=== PATIENT | male | born 1970 | race Caucasian/White ===

== ENCOUNTER 2016-12-30 10:28 | Day surgery (SDC) | payer OTHER ==
[~2016-12-30] VITALS: Ht 167.6 cm; Wt 65.1 kg
[2016-12-30] VITALS (16 sets, daily range): BP systolic 105–125; BP diastolic 64–80; PULSE 56–78; RESP 6–25; Ht 167.6 cm; Wt 65.1 kg
[~2016-12-30 10:28] MED LIST: CEFAZOLIN 1 GM INJ ONE
[2016-12-30] MEDS ORDERED: MTF1000T PO (11:59)
[2016-12-30] MEDS ORDERED: SITA100T8 PO (12:01)
[2016-12-30] MEDS ORDERED: LIDOCAINE 2% 20 ML UROJET SYRINGE ONE (12:15)
[2016-12-30] MEDS ORDERED: IOHEXOL 300MG/ML 30 ML BTL ONE (12:26)
--- NOTE | 2016-12-30 12:26 | HPN ---
Date/Time of Note Date/Time of Note DATE: 12/30/16 TIME: 12:26 Interval H&P Admission Note Pt. seen H&P reviewed: No system changes KEENAN DURÁN MD Dec 30, 2016 12:26
[2016-12-30] MEDS ORDERED: PROPOFOL 20 ML ONE (12:29)
[2016-12-30] MEDS ORDERED: ROCURONIUM 50 MG INJ ONE (12:29)
[2016-12-30] MEDS ORDERED: LIDOCAINE 2% (SDV) 5 ML INJ ONE (12:30)
[2016-12-30] MEDS ORDERED: FENTAnyl 50 MCG/ML VIAL ONE (12:30)
[2016-12-30] MEDS ORDERED: ONDANSETRON 4 MG INJ IV PRN (13:00)
[2016-12-30] MEDS ORDERED: OXYCODONE/ACETAMINOPHEN (5/325) TAB PO PRN ×2 (13:00)
[2016-12-30] MEDS ORDERED: HYDROmorphONE (0.2 MG/ML) 10ML SYG IV PRN ×3 (13:00)
[2016-12-30] MEDS ORDERED: FENTAnyl 50 MCG/ML VIAL IV PRN ×3 (13:00)
[2016-12-30] MEDS ORDERED: LABETALOL HCL 20MG INJ IV PRN (13:00)
[2016-12-30] MEDS ORDERED: MEPERIDINE 25 MG INJ IV PRN (13:00)
[2016-12-30] MEDS ORDERED: EPHEDrine SULFATE 50 MG/5 ML SYG IV PRN (13:00)
[2016-12-30] MEDS ORDERED: HYDROCODONE/APAP (5/325) TAB PO PRN (14:00)
--- NOTE | 2016-12-30 14:16 | OPR ---
DATE OF OPERATION: 12/30/2016 PREOPERATIVE DIAGNOSIS: History of testicular cancer with retroperitoneal adenopathy, status post c hemotherapy and retroperitoneal lymph node dissection. The patient does have bilateral JJ stents wh ich needs to be removed, and if needed, replaced. POSTOPERATIVE DIAGNOSIS: History of testicular cancer with retroperitoneal adenopathy, status post chemotherapy and retroperitoneal lymph node dissection. The patient does have bilateral JJ stents w hich needs to be removed, and if needed, replaced. The patient does have more hydronephrosis on the right side. The right ureter is still dilated and there is a little constriction at the right sacr oiliac joint area, and the kidney, right side, does not drain well, and the left ureter is normal, b ut the left kidney, also does not drain good either. Therefore, I did remove the old stents, did th e retrograde pyelogram, and inserted new JJ stents, 6 x 26 on the right side and 6 x 24 on the left side. TECHNIQUE: The patient was brought to the operating room. General anesthesia was induced. The pat ient was positioned in the lithotomy position. He received 2 g of Ancef IV at the start of the proc edure. Time out was done. The patient was identified by his name, date, and the procedure. The genital area was then prepped and draped in the usual sterile manner. I did take pictures, did fluoroscopy first, and the stents were hardly visible on the fluoroscopy. They seemed like they may be radiolucent, but as I did the cystoscopy, one could see them curling into the bladder and coming down in each ureter. Therefore, I did first grasp the right ureteral stent and pulled it out. The n I did repeat the same on the left side and removed the left ureteral stent. Then I used a 10-Fren ch cone tip ureteral catheter, did retrograde on the right side, and also retrograde on the right si de, and the findings are as dictated above, I did wait with the hope that the right kidney will drai n. It would not drain. The ureter did drain except the area above the sacroiliac joint at the leve l of the iliac vessel crossing, and on the left side the ureter drained all the way up to the UPJ, b ut the renal pelvis and the collecting system on the left side did not drain completely. Therefore, I decided to put stents back in, so I did put a 6 x 26 JJ stent on the right side and 6 x 24 on the left side. The stents curl well in the kidney and went into the bladder. The bladder was emptied, and the patient was transferred to recovery room in stable and satisfactory condition. Dictated By: KEENAN SUAREZ/JUANA Conf#: [id number] DID#: [id number]
--- NOTE | 2016-12-30 16:06 | RADRPT ---
PROCEDURE: Intraoperative imaging of the abdomen and pelvis with fluoroscopy. CLINICAL INDICATION: Abdomen pain. Intraoperative. TECHNIQUE: 36 images of the abdomen and pelvis were obtained in the operating room with an image i ntensifier. No radiologist was in attendance. 119.2 seconds of fluoroscopy time was used. COMPARISON: No prior study is available for comparison. FINDINGS: Images demonstrate bilateral retrograde pyelogram with contrast injected into both ureters. On the right side, there is severe hydronephrosis and a stricture of the mid right ureter at the mid L5 level. No filling defect is visualized. On the left side, there is moderate hydronephrosis and no obstructing lesion visualized. Final images demonstrate satisfactory position of bilateral ureteral double pigtail stent is. IMPRESSION: 1. Severe right hydronephrosis with a stricture in the mid right ureter and L5 level. 2. Moderate left hydronephrosis with no obstructing lesion visualized. 3. Satisfactory position of bilateral double pigtail ureteral stents. RPTAT: QQ .Phillip Granados MD, MD Date Time Electronically viewed and signed by .Phillip Granados MD, on 12/30/2016 16:05 .R/
[2016-12-31] MEDS ORDERED: INFLUENZA VIRUS VACCINE 0.5 ML (DISPENSING) IM* ONE (09:00)
== END 2016-12-30 16:05 | disposition home or self-care (01) ==
LOC: SDS 10:28
PROVIDERS: ATTEND Urology
DX: N13.30 Unspecified hydronephrosis (principal); E11.9 Type 2 diabetes mellitus without complications; Z85.47 Personal history of malignant neoplasm of testis
CPT/HCPCS: 52310; 74420; 82962; C2617; J3010; Q9967; Z7512; Z7610; 88300; J0690

== ENCOUNTER 2017-04-28 10:37 | Day surgery (SDC) | payer OTHER ==
[2017-04-27 12:56] VITALS: BMI 23.1
[2017-04-28] VITALS (8 sets, daily range): BP systolic 106–122; BP diastolic 69–74; PULSE 68–82; RESP 14–28; Ht 167.6 cm; Wt 64.9 kg
[~2017-04-28] VITALS: Ht 167.6 cm; Wt 64.9 kg
[~2017-04-28 10:37] MED LIST changes: +ATROPINE 1 MG/10 ML SYRINGE IV PRN; +DIPHENHYDRAMINE 50 MG INJ IV PRN; +EPHEDrine SULFATE 50 MG/5 ML SYG IV PRN; +FENTAnyl 50 MCG/ML VIAL IV PRN; +HYDROmorphONE (0.2 MG/ML) 10ML SYG IV PRN; +LABETALOL HCL 20MG INJ IV PRN; +MEPERIDINE 25 MG INJ IV PRN; +MIDAZOLAM 1 MG/ML 2 ML INJ IV PRN; +MTF1000T PO; +ONDANSETRON 4 MG INJ IV PRN; +OXYCODONE/ACETAMINOPHEN (5/325) TAB PO PRN; +SITA100T8 PO; +hydrALAzine 20 MG INJ IV PRN; +morphine (1 MG/ML) 10ML SYRINGE IV PRN
[2017-04-28] MEDS ORDERED: CEFTRIAXONE 1 GM/NS 50 ML IVPB SCH (11:00)
[2017-04-28] MEDS ORDERED: FENTAnyl 50 MCG/ML VIAL ONE (11:04)
[2017-04-28] MEDS ORDERED: LIDOCAINE 2% (SDV) 5 ML INJ ONE (11:04)
[2017-04-28] MEDS ORDERED: DEXAMETHASONE 4 MG/ML 1 ML INJ ONE (11:04)
[2017-04-28] MEDS ORDERED: PROPOFOL 20 ML ONE (11:04)
[2017-04-28] MEDS ORDERED: NEOSTIGMINE 3 MG/3 ML SYRINGE ONE (11:04)
[2017-04-28] MEDS ORDERED: ROCURONIUM 50 MG INJ ONE (11:04)
[2017-04-28] MEDS ORDERED: GLYCOPYRROLATE 0.4 MG INJ ONE (11:04)
[2017-04-28] MEDS ORDERED: MIDAZOLAM 1 MG/ML 2 ML INJ ONE (11:04)
[2017-04-28] MEDS ORDERED: ONDANSETRON 4 MG INJ ONE (11:05)
[2017-04-28] MEDS ORDERED: IOHEXOL 300MG/ML 30 ML BTL ONE (12:24)
--- NOTE | 2017-04-28 12:27 | HPN ---
Date/Time of Note Date/Time of Note DATE: 04/28/17 TIME: 12:26 Interval H&P Admission Note Pt. seen H&P reviewed: No system changes KEENAN DURÁN MD Apr 28, 2017 12:26
[2017-04-28] MEDS ORDERED: LACTATED RINGER'S 1,000 ML IV SCH (12:30)
[2017-04-28] MEDS ORDERED: IOHEXOL 300MG/ML 30 ML BTL INJ ONE (13:11)
--- NOTE | 2017-04-28 14:10 | OPR ---
Date/Time of Note Date/Time of Note DATE: 04/28/17 TIME: 13:54 Operative Report Procedure Date: Apr 28, 2017 Preoperative Diagnosis Bilateral hydronephrosis, history of testicular cancer and retroperitoneal lymph node dissection, patient status post bilateral JJ stent insertion Postoperative Diagnosis Bilateral hydronephrosis, history of testicular cancer and retroperitoneal lymph node dissection, patient status post bilateral JJ stent insertion. Operation Performed Cystoscopy and removal of right ureteral JJ stent, right retrograde pyelogram and insertion of a new right ureteral JJ stent, size 6 [place] by 24 cm long Removal of left ureteral JJ stent, left retrograde pyelogram Surgeon: KEENAN DURÁN MD Anesthesia: general Anesthesiologist: ARLEN EUBANKS MD Estimated Blood Loss: none Specimens No specimen, the 2 JJ stents, that were removed, were discarded Complications: None Pt Condition Post Procedure: stable Indications Bilateral hydronephrosis status post retroperitoneal lymph node dissection from testicular cancer, the left side appears better than it was before and it drains reasonably well, so I decided not to insert a new JJ stent on the left side. On the right side however the kidney remained full of contrast and was not draining well in the area lateral to the L5 and over the sacroiliac joint area. So on the right side I reinserted a new JJ stent 6 [place] by 24 cm long Operative\Procedure Findings Bilateral hydronephrosis status post retroperitoneal lymph node dissection from testicular cancer, the left side appears better than it was before and it drains reasonably well, so I decided not to insert a new JJ stent on the left side. On the right side however the kidney remained full of contrast and was not draining well in the area lateral to the L5 and over the sacroiliac joint area. So on the right side I reinserted a new JJ stent 6 [place] by 24 cm long Procedure Description Patient was brought to the operating room general endotracheal anesthesia was induced time out was done , the patient was identified by his name date and the procedure. The patient was positioned in the lithotomy position. The genital area was prepped and draped in the usual sterile manner. #21 [place] cystoscope sheath was then introduced under direct vision through the penile urethra all the way to the bladder. Fluoroscopy was then done , the distal end of the right ureteral JJ stent was grasped with the grasper and pulled out. A 10 [place] cone tipped ureteral catheter was used and a right retrograde pyelogram was done .the contrast material was not going into the ureter at the sacroiliac joint area unless I pushed the tip of the cone tip catheter to that level and then the contrast remained in the renal pelvis and did not seem to be coming down easily or fast . Then I went ahead and removed the left ureteral JJ stent and did a retrograde pyelogram on the left side . There on the left side the kidney appeared to be draining better ,even though there was still some contrast in the kidney but it appears better than it was before, therefore I decided not to put a JJ stent on the left side . As I was done with the left side we looked back at the right side and again the contrast still in the upper ureter and renal pelvis, therefore I decided to insert a new JJ stent on the right side. A 0.35 zip wire was passed under fluoroscopy from the bladder up to the kidney ,then on the zip wire I advanced a 6 [place] by 24 cm long JJ stent and had its proximal end curling into the kidney and the distal end curling into the bladder. the bladder was emptied and the patient was transferred to recovery room in stable and satisfactory condition KEENAN DURÁN MD Apr 28, 2017 14:10
[2017-04-28] MEDS ORDERED: HYDROCODONE/APAP (5/325) TAB PO PRN (14:30)
--- NOTE | 2017-04-28 15:48 | RADRPT ---
PROCEDURE: Intraoperative imaging of the abdomen and pelvis with fluoroscopy. CLINICAL INDICATION: Abdominal pain. Intraoperative. TECHNIQUE: 44 images of the abdomen and pelvis were obtained in the operating room with an image i ntensifier. No radiologist was in attendance. 184.2 seconds of fluoroscopy time was used. COMPARISON: 12/30/2016. FINDINGS: Initial images demonstrate bilateral ureteral stents in satisfactory position. The stents were surjit michael and contrast was injected into the bilateral ureters and multiple digital images were obtained. Following this, new bilateral double pigtail ureteral stents were inserted. IMPRESSION: 1. Satisfactory intraoperative imaging of the abdomen and pelvis. 2. Replacement of bilateral double pigtail ureteral stents. RPTAT: QQ .Phillip Granados MD, MD Date Time Electronically viewed and signed by .Phillip Granados MD, on 04/28/2017 15:47 .R/
== END 2017-04-28 16:08 | disposition home or self-care (01) ==
LOC: SDS 10:37
PROVIDERS: ATTEND Urology
DX: N13.30 Unspecified hydronephrosis (principal); Z85.47 Personal history of malignant neoplasm of testis; E11.9 Type 2 diabetes mellitus without complications
CPT/HCPCS: 52332; 74430; 82962; 87086; C2617; J0690; J1100; J2250; J2405; J2710; J3010; Q9967; Z7512; Z7610

== ENCOUNTER 2017-08-19 10:29 | Day surgery (SDC) | payer OTHER ==
[~2017-08-19] VITALS: Ht 167.6 cm; Wt 67.0 kg
[2017-08-19] VITALS (10 sets, daily range): BP systolic 93–113; BP diastolic 50–77; PULSE 56–63; RESP 14–16; Ht 167.6 cm; Wt 67.0 kg
[~2017-08-19 10:29] MED LIST changes: -ATROPINE 1 MG/10 ML SYRINGE IV PRN; -CEFAZOLIN 1 GM INJ ONE; +CEFAZOLIN 2 GM/50 ML (PMX) 50 ML IVPB SCH; -DIPHENHYDRAMINE 50 MG INJ IV PRN; -EPHEDrine SULFATE 50 MG/5 ML SYG IV PRN; -FENTAnyl 50 MCG/ML VIAL IV PRN; -HYDROmorphONE (0.2 MG/ML) 10ML SYG IV PRN; -LABETALOL HCL 20MG INJ IV PRN; -MEPERIDINE 25 MG INJ IV PRN; -MIDAZOLAM 1 MG/ML 2 ML INJ IV PRN; -ONDANSETRON 4 MG INJ IV PRN; -OXYCODONE/ACETAMINOPHEN (5/325) TAB PO PRN; +ROCURONIUM 50 MG INJ ONE; -hydrALAzine 20 MG INJ IV PRN; -morphine (1 MG/ML) 10ML SYRINGE IV PRN
[2017-08-19] MEDS ORDERED: GLIM4TAB PO (11:10)
[2017-08-19] MEDS ORDERED: BENA5TAB2 PO (11:10)
[2017-08-19] MEDS ORDERED: PROPOFOL 20 ML ONE (12:17)
[2017-08-19] MEDS ORDERED: MIDAZOLAM 1 MG/ML 2 ML INJ ONE (12:17)
[2017-08-19] MEDS ORDERED: FENTAnyl 50 MCG/ML VIAL ONE (12:17)
[2017-08-19] MEDS ORDERED: CEFAZOLIN 1 GM INJ ONE (12:17)
[2017-08-19] MEDS ORDERED: IOHEXOL 300MG/ML 30 ML BTL ONE (12:21)
--- NOTE | 2017-08-19 12:24 | HPN ---
Date/Time of Note Date/Time of Note DATE: 08/19/17 TIME: 12:24 Interval H&P Admission Note Pt. seen H&P reviewed: No system changes KEENAN DURÁN MD Aug 19, 2017 12:24
[2017-08-19] MEDS ORDERED: DEXAMETHASONE 4 MG/ML 1 ML INJ ONE (12:34)
[2017-08-19] MEDS ORDERED: KETOROLAC 30 MG INJ ONE (12:34)
[2017-08-19] MEDS ORDERED: METOCLOPRAMIDE 10 MG INJ ONE (12:34)
[2017-08-19] MEDS ORDERED: ONDANSETRON 4 MG INJ ONE (12:34)
[2017-08-19] MEDS ORDERED: DIPHENHYDRAMINE 50 MG INJ IV PRN (13:00)
[2017-08-19] MEDS ORDERED: ONDANSETRON 4 MG INJ IV PRN (13:00)
[2017-08-19] MEDS ORDERED: EPHEDrine SULFATE 50 MG/5 ML SYG IV PRN (13:00)
[2017-08-19] MEDS ORDERED: MEPERIDINE 25 MG INJ IV PRN (13:00)
[2017-08-19] MEDS ORDERED: HYDROmorphONE (0.2 MG/ML) 10ML SYG IV PRN ×3 (13:00)
[2017-08-19] MEDS ORDERED: FENTAnyl 50 MCG/ML VIAL IV PRN ×3 (13:00)
[2017-08-19] MEDS ORDERED: METOCLOPRAMIDE 10 MG INJ IV PRN (13:00)
[2017-08-19] MEDS ORDERED: SUGAMMADEX SODIUM 200 MG/2 ML VIAL IV ONE (13:09)
--- NOTE | 2017-08-19 13:24 | OPR ---
Date/Time of Note Date/Time of Note DATE: 08/19/17 TIME: 13:18 Operative Report Procedure Date: Aug 19, 2017 Preoperative Diagnosis History of testicular cancer, right hydronephrosis, patient has right ureteral JJ stent Postoperative Diagnosis History of testicular cancer, right hydronephrosis, patient has right ureteral JJ stent Operation/Procedure Performed Cystoscopy removal of right ureteral JJ stent, bilateral retrograde pyelograms and insertion of a new right ureteral JJ stent 7 Citizen Of [place] by 24 cm long Surgeon see signature line Injection Molding Supervisor None Anesthesia Type: general Anesthesiologist: SAHIL VARGAS MD Estimated Blood Loss: none Transfusion none Specimen None Grafts/Implants none Complications none Pt Condition Post Procedure: stable Disposition: PACU Indications History of testicular cancer, right hydronephrosis, patient has right ureteral JJ stent Procedure Description Patient was brought to the operating room general anesthesia was induced. Patient was positioned in the lithotomy position. He was given 2 g of Ancef IV at the start of the procedure. The genital area was prepped and draped in the usual sterile manner. Timeout was done patient was identified by his name birthdate the procedure on the side of the procedure. 21 Citizen Of [place] cystoscope sheath was introduced under direct vision through the penile urethra all the way to the bladder. The distal end of the right ureteral JJ stent was grasped and pulled out. 10 Citizen [place] cone-tip ureteral catheter was then used and a retrograde pyelogram was done on the right side and that showed still right hydronephrosis and also narrowing over the sacroiliac joint area I waited to see if the contrast material drains well and it did not. It is a little better than last time but still not enough to feel comfortable not inserting a new JJ stent. Left retrograde pyelogram was done and that appeared to be normal. Then the right ureteral orifice was cannulated and a zip wire was passed under fluoroscopy all the way up to the kidney then on that wire a 7 Citizen Of [place] by 24 cm long JJ stent was advanced. The proximal end curled in the kidney and the distal end curled in the bladder. The bladder was then emptied and the patient transferred to recovery room in stable and satisfactory condition KEENAN DURÁN MD Aug 19, 2017 13:24
--- NOTE | 2017-08-19 13:24 | OPR ---
Date/Time of Note Date/Time of Note DATE: 08/19/17 TIME: 13:18 Operative Report Procedure Date: Aug 19, 2017 Preoperative Diagnosis History of testicular cancer, right hydronephrosis, patient has right ureteral JJ stent Postoperative Diagnosis History of testicular cancer, right hydronephrosis, patient has right ureteral JJ stent Operation/Procedure Performed Cystoscopy removal of right ureteral JJ stent, bilateral retrograde pyelograms and insertion of a new right ureteral JJ stent 7 [place] by 24 cm long Surgeon see signature line Stay Cutter None Anesthesia Type: general Anesthesiologist: SAHIL VARGAS MD Estimated Blood Loss: none Transfusion none Specimen None Grafts/Implants none Complications none Pt Condition Post Procedure: stable Disposition: PACU Indications History of testicular cancer, right hydronephrosis, patient has right ureteral JJ stent Procedure Description Patient was brought to the operating room general anesthesia was induced. Patient was positioned in the lithotomy position. He was given 2 g of Ancef IV at the start of the procedure. The genital area was prepped and draped in the usual sterile manner. Timeout was done patient was identified by his name birthdate the procedure on the side of the procedure. 21 [place] cystoscope sheath was introduced under direct vision through the penile urethra all the way to the bladder. The distal end of the right ureteral JJ stent was grasped and pulled out. 10 [place] cone-tip ureteral catheter was then used and a retrograde pyelogram was done on the right side and that showed still right hydronephrosis and also narrowing over the sacroiliac joint area I waited to see if the contrast material drains well and it did not. It is a little better than last time but still not enough to feel comfortable not inserting a new JJ stent. Left retrograde pyelogram was done and that appeared to be normal. Then the right ureteral orifice was cannulated and a zip wire was passed under fluoroscopy all the way up to the kidney then on that wire a 7 [place] by 24 cm long JJ stent was advanced. The proximal end curled in the kidney and the distal end curled in the bladder. The bladder was then emptied and the patient transferred to recovery room in stable and satisfactory condition KEENAN DURÁN MD Aug 19, 2017 13:24
--- NOTE | 2017-08-19 13:24 | OPR ---
Date/Time of Note Date/Time of Note DATE: 08/19/17 TIME: 13:18 Operative Report Procedure Date: Aug 19, 2017 Preoperative Diagnosis History of testicular cancer, right hydronephrosis, patient has right ureteral JJ stent Postoperative Diagnosis History of testicular cancer, right hydronephrosis, patient has right ureteral JJ stent Operation/Procedure Performed Cystoscopy removal of right ureteral JJ stent, bilateral retrograde pyelograms and insertion of a new right ureteral JJ stent 7 [place] by 24 cm long Surgeon see signature line Faculty I On Call Medical Assistant None Anesthesia Type: general Anesthesiologist: SAHIL VARGAS MD Estimated Blood Loss: none Transfusion none Specimen None Grafts/Implants none Complications none Pt Condition Post Procedure: stable Disposition: PACU Indications History of testicular cancer, right hydronephrosis, patient has right ureteral JJ stent Procedure Description Patient was brought to the operating room general anesthesia was induced. Patient was positioned in the lithotomy position. He was given 2 g of Ancef IV at the start of the procedure. The genital area was prepped and draped in the usual sterile manner. Timeout was done patient was identified by his name birthdate the procedure on the side of the procedure. 21 [place] cystoscope sheath was introduced under direct vision through the penile urethra all the way to the bladder. The distal end of the right ureteral JJ stent was grasped and pulled out. 10 [place] cone-tip ureteral catheter was then used and a retrograde pyelogram was done on the right side and that showed still right hydronephrosis and also narrowing over the sacroiliac joint area I waited to see if the contrast material drains well and it did not. It is a little better than last time but still not enough to feel comfortable not inserting a new JJ stent. Left retrograde pyelogram was done and that appeared to be normal. Then the right ureteral orifice was cannulated and a zip wire was passed under fluoroscopy all the way up to the kidney then on that wire a 7 [place] by 24 cm long JJ stent was advanced. The proximal end curled in the kidney and the distal end curled in the bladder. The bladder was then emptied and the patient transferred to recovery room in stable and satisfactory condition KEENAN DURÁN MD Aug 19, 2017 13:24
[2017-08-19] MEDS ORDERED: HYDROCODONE/APAP (5/325) TAB PO PRN (13:30)
--- NOTE | 2017-08-19 17:28 | RADRPT ---
PROCEDURE: Intraoperative imaging of the abdomen and pelvis with fluoroscopy. Bilateral retrograd e pyelogram. CLINICAL INDICATION: Abdominal pain. Intraoperative. TECHNIQUE: 24 images of the abdomen and pelvis were obtained in the operating room with an image i ntensifier. No radiologist was in attendance. Fluoroscopy time is 110.5 seconds. COMPARISON: 04/28/2017. FINDINGS: The first set of images demonstrate a right ureteral stent in satisfactory position. The previously noted left ureteral stent has been removed. Multiple surgical clips are present in the abdomen and p jarrod. The right ureteral stent was removed and contrast was injected into the proximal right ureter . Images demonstrate no filling defect but there is moderate right hydronephrosis. Contrast was then injected into the left ureter demonstrating no filling defect and no hydronephrosis. The final imag e demonstrates replacement of the right ureteral double pigtail stent. IMPRESSION: 1. Satisfactory intraoperative imaging of the abdomen and pelvis. 2. Moderate right hydronephrosis. 3. Replacement of right ureteral double pigtail stent. RPTAT: QQ .Phillip Granados MD, Date Time Electronically viewed and signed by .Phillip Granados MD, on 08/19/2017 17:28 .R/
== END 2017-08-19 15:30 | disposition home or self-care (01) ==
LOC: SDS 10:29
PROVIDERS: ATTEND Urology
DX: N13.30 Unspecified hydronephrosis (principal); E11.9 Type 2 diabetes mellitus without complications; Z85.47 Personal history of malignant neoplasm of testis
CPT/HCPCS: 52332; 74420; 82962; 85610; 85730; C2617; J0690; J1100; J1885; J2250; J2405; J2765; J3010; Q9967; Z7512; Z7610

== ENCOUNTER 2017-12-30 10:22 | Day surgery (SDC) | END 2017-12-30 15:20 | disposition home or self-care (01) ==

== ENCOUNTER 2018-06-02 10:21 | Day surgery (SDC) | END 2018-06-02 15:30 | disposition home or self-care (01) ==

== ENCOUNTER → 2019-05-03 | Day surgery (SDC) | payer OTHER ==
[2019-05-03] VITALS (12 sets, daily range): BP systolic 111–124; BP diastolic 74–82; PULSE 70–82; RESP 16–31; Ht 165.1 cm; Wt 62.8 kg
[~2019-05-03] VITALS: Ht 165.1 cm; Wt 62.8 kg
[~2019-05-03] MED LIST changes: +ACCU-CHEK XX ONE; +BENA5TAB33 PO; +BUPIVACAINE 0.5% (SDV) 30 ML INJ ONE; +CEFAZOLIN 1 GM INJ ONE; +CEFAZOLIN 2 GM/50 ML (PMX) 50 ML IVPB ONE; -CEFAZOLIN 2 GM/50 ML (PMX) 50 ML IVPB SCH; +CIPR500T4 PO; +ERGO2000 PO; +FAMOTIDINE 20 MG INJ ONE; +FENTAnyl 50 MCG/ML VIAL IV PRN; +FENTAnyl 50 MCG/ML VIAL ONE; +GLIP10TA14 PO; +HYDROCODONE/APAP (5/325) TAB PO ONE; +INSULIN ASPART [NOVOLOG] 3 ML PEN SC ONE; +LABETALOL HCL 20MG INJ IV PRN; +LIDOCAINE 100 MG SYRINGE ONE; +MEPERIDINE 25 MG INJ IV PRN; +METF100010 PO; +METOCLOPRAMIDE 10 MG INJ ONE; +ONDANSETRON 4 MG INJ IV PRN; +ONDANSETRON 4 MG INJ ONE; +OXYCODONE/ACETAMINOPHEN (5/325) TAB PO PRN; +PROPOFOL 20 ML ONE; -ROCURONIUM 50 MG INJ ONE; +SITA100T11 PO; -SITA100T8 PO; +SOD CHLORIDE 0.9% 1,000 ML IV ONE; +hydrALAzine 20 MG INJ IV PRN
--- NOTE | 2019-05-03 08:25 | PREAC ---
Date/Time of Note Date/Time of Note DATE: 05/03/19 TIME: 08:24 Anesthesia Eval and Record Evaluation Time Pre-Procedure Interview DATE: 05/03/19 TIME: 08:24 Age 48 Sex male NPO: 8 hrs Preoperative diagnosis right back mass Planned procedure excision right back mass Past Medical History Past Medical History: Includes Endo: Diabetes Heme: Other (HX L TESTICULAR CANCER s/p CHEMO 3 cycles 2013) Infection(s): Other (UTI, 2 days in cipro now, Dr Trina kerns.) Surgery & Anesthesia Issues No known issue Meds Anticoagulation: No Beta Vernon within 24 hr: No Reason Beta Vernon not given: Pt. not on B-Vernon Reported Medications Benazepril Hcl* (Benazepril Hcl*) 5 Mg Tablet, 5 MG PO DAILY, #30 TAB 05/03/19 Metformin Hcl* (Metformin Hcl*) 1,000 Mg Tablet, 1000 MG PO WITH BREAKFAST DINNE, #60 TAB 05/03/19 Glipizide* (Glipizide*) 10 Mg Tablet, 10 MG PO QPM, TAB 05/03/19 Ergocalciferol (Vitamin D2) (VITAMIN D2) 2,000 Unit Tablet, 2000 UNIT PO DAILY, TAB 05/03/19 Sitagliptin* (Januvia*) 100 Mg Tablet, 100 MG PO DAILY, #30 TAB 05/03/19 Ciprofloxacin Hcl* (Ciprofloxacin Hcl*) 500 Mg Tablet, 500 MG PO BID, #14 TAB STARTED 04-30-19 FOR 7 DAYS 05/03/19 Discontinued Reported Medications Sitagliptin* (Januvia*) 100 Mg Tablet, 100 MG PO DAILY, #30 TAB 06/02/18 Benazepril Hcl* (Benazepril Hcl*) 5 Mg Tablet, 5 MG PO DAILY, #30 TAB 08/19/17 Metformin* (Glucophage*) 1,000 Mg Tablet, 1000 MG PO BID, #60 TAB 12/30/16 Current Medications Cefazolin Sodium/ Dextrose 50 ml @ 100 mls/hr PRE-OP ONCE IVPB ; Start 05/03/19 at 11:00; Stop 05/03/19 at 11:29 Sodium Chloride 1,000 ml @ 75 mls/hr [id number] ONCE IV ; Start 05/03/19 at 11:00; Stop 05/04/19 at 00:19 Meds reviewed: Yes Allergies Coded Allergies: No Known Allergy (Unverified , 05/03/19) Allergies Reviewed: Yes Labs/Studies Labs Reviewed: Reviewed by anesthesiologist test: N/A Pre-procedure Exam Airway: Adequate mouth opening, Adequate thyromental dist Mallampati: Mallampati II Teeth: Normal Lung: Normal Heart: Normal ASA Physical Status ASA physical status: 2 Emergency: None Planned Anesthetic General/MAC: LMA Planned Pain Management Parenteral pain med, Local by surgeon Pre-operative Attestations Prior to commencing anesthesia and surgery, the patient was re-evaluated, there was verification of: *The patient's identity *The results of appropriate recent lab work and preoperative vital signs *The above evaluation not changing prior to induction *Anesthetic plan, risk benefits, alternative and complications discussed with patient/family; questions answered; patient/family understands, accepts and wishes to proceed. NILESH MAR May 03, 2019 08:25
--- NOTE | 2019-05-03 10:06 | OPR ---
Date/Time of Note Date/Time of Note DATE: 05/03/19 TIME: 10:04 Operative Report Procedure Date: May 03, 2019 Preoperative Diagnosis right back mass Postoperative Diagnosis same Operation/Procedure Performed 1. excision of right back mass 6 cm mass 6 cm incision 2. localized adjacent tissue transfer with the use of skin flaps 12 sq cm defect of right back 3. therapeutic injection of subcutaneous local anesthesia Surgeon see signature line [employer] Transactions Attorney none Anesthesia Type: general Estimated Blood Loss: 0 - 10 ml's Transfusion none Specimen right back mass Grafts/Implants none Complications none Pt Condition Post Procedure: stable Indications This is a 48-year-old male with a right back mass. He requires surgical excision of the mass. Risks alternatives benefits and personal were discussed the patient. Patient expressed understanding and consents to the operation. Procedure Description Patient is taken to the OR and prepped and draped in usual sterile fashion. Surgical time was performed. IV antibiotics given. Elliptical incision was made over the right back mass. Dissection with cautery was carried onto the mass and the mass was circumferentially excised off the muscle. Good hemostasis status. Due to the tissue defect localization just transfer with these of skin flaps was performed. Multilayer closure with interrupted 3-0 Vicryl and skin danae. Therapeutic contains local anesthesia was injected at incision site. Dry dressings were applied. Eugenio FRANCES May 03, 2019 10:06
--- NOTE | 2019-05-03 10:39 | PAC ---
Date/Time of Note Date/Time of Note DATE: 05/03/19 TIME: 10:39 Post-Anesthesia Notes Post-Anesthesia Note Last documented vital signs Vital Signs Date Temp Pulse Resp B/P (MAP) Pulse Ox O2 O2 Flow FiO2 Time Delivery Rate 05/03/19 78 24 114/80 98 Room Air 10:37 (91) 05/03/19 97.8 10:07 Activity: WNL Respiratory function: WNL Cardiovascular function: WNL Mental status: Baseline Pain reasonably controlled: Yes Hydration appropriate: Yes Nausea/Vomiting absent: Yes NILESH MAR May 03, 2019 10:39
== END | disposition home or self-care (01) ==
LOC: SDS 06:28
PROVIDERS: ATTEND Surgery
DX: L72.0 Epidermal cyst (principal); E11.9 Type 2 diabetes mellitus without complications; N39.0 Urinary tract infection, site not specified; Z85.47 Personal history of malignant neoplasm of testis; Z79.4 Long term (current) use of insulin
CPT/HCPCS: 14001; 80053; 82962; 85025; 85610; 85730; 88307; J0690; J1815; J2001; J2405; J2765; J3010; Z7512; Z7610